=== PATIENT | female | born 1950 | race Caucasian/White ===

== ENCOUNTER 2017-08-18 10:53 | Emergency (ER) | payer MEDICARE ==
[~2017-08-18] VITALS: Ht 157.5 cm; Wt 88.5 kg
[2017-08-18] MEDS ORDERED: LEVOXYL112 MCG PO (11:07)
[2017-08-18] MEDS ORDERED: ASPIRIN81 MG PO (11:07)
[2017-08-18] MEDS ORDERED: HYDROCHLOROTH12.5 MG PO (11:14)
[2017-08-18] MEDS ORDERED: OMEPRAZOLE20 MG PO (11:15)
[2017-08-18] MEDS ORDERED: ALAVERT10 M1 PO (11:16)
--- NOTE | 2017-08-19 08:16 | EKG ---
[facility] [address] [facility] [place] [address] Signed Normal sinus rhythm Normal ECG No previous ECGs available Confirmed by NOEL ELENA MD ([id number]) on 08/19/2017 8:15:58 AM Electronically Signed By: NOEL ELENA MD 08/19/17 0816 PATIENT NAME: EMMA IRAHETA DELANEY Electrocardiogram DATE OF : 52 PHYSICIAN: NOEL ELENA MD REPORT #: [id number] REPORT IS CONFIDENTIAL AND NOT TO BE RELEASED WITHOUT AUTHORIZATION
== END 2017-08-18 13:16 | disposition short-term general hospital (02) ==
LOC: ED 10:53
DX: I20.0 Unstable angina (principal); Z88.2 Allergy status to sulfonamides; Z79.899 Other long term (current) drug therapy; Z79.82 Long term (current) use of aspirin
CPT/HCPCS: 71045; 80053; 84484; 85025; 93005; 93010; 96374; 99285; J1644

== ENCOUNTER 2021-08-25 19:06 | Inpatient (IN) | payer MEDICARE, OTHER ==
[~2021-08-25] VITALS: Ht 157.5 cm; Wt 93.4 kg
[~2021-08-25 19:06] MED LIST: ALAVERT10 M1 PO; ASPIRIN81 MG PO; HYDROCHLOROTH12.5 MG PO; LEVOXYL112 MCG PO; OMEPRAZOLE20 MG PO
--- NOTE | 2021-08-25 23:26 | NUR ---
PT ON 3LNC O2, NOT CHRONIC, SOB WITH EXERTION NOTED ON RETURN FROM BR EARLIER. COOP WITH ASSESSMENT. LUNGS EXP WHEEZING AND DIM AT BASES, MOIST COUGH NOTED, MEDICATED WITH TESSALON PERLES AND COUGH SYRUO, C/O H/A 5/10 MEDICATED WITH TYLENOL PO. TOLERATING DIET AND FLUIDS WELL, NO N/V. ATE SNACKS AND SANDWICH BOX CONTENTS. ALERT AND ORIENTED. SL RFA PATENT. ORIENTED TO ROOM AND PROCEDURES
--- NOTE | 2021-08-25 23:52 | EKG ---
[facility] [address] [facility] [place] [address] Signed Sinus rhythm with frequent premature ventricular complexes Biatrial enlargement Incomplete right bundle branch block Abnormal ECG When compared with ECG of 18-AUG-2017 10:55, premature ventricular complexes are now present Incomplete right bundle branch block is now present Confirmed by NOEL ELENA MD ([id number]) on 08/25/2021 11:52:33 PM Electronically Signed By: NOEL ELENA MD 08/25/212351 PATIENT NAME: EMMA IRAHETA DELANEY Electrocardiogram DATE OF : 52 PHYSICIAN: NOEL ELENA MD REPORT #: [id number] REPORT IS CONFIDENTIAL AND NOT TO BE RELEASED WITHOUT AUTHORIZATION
--- NOTE | 2021-08-26 00:22 | NUR ---
Pt on droplet isolation precautions. on 3L NC not chronic, up to br, voided back to bed, sob present. sats 84% on 3L P102 oand RR 26, O2 increased to 5L went up to 88% and after several CDB went up to 92%, O2 decreased to 3L, pulse 88, R20. back to bed, bed alarm on aware to call prior to getting up.
--- NOTE | 2021-08-26 02:20 | NUR ---
RESTING, EYE CLOSED, NO DISTRESS, ON 3LNC, ON DROPLET ISOLATION
--- NOTE | 2021-08-26 03:41 | NUR ---
O2 WAS DECREAED EARLIER TO 2LNC WHEN IN BED, SATS 95%. O2 INCREAED TO 4L WHEN UP TO BR, SATS 90% ON RETURN, P102, R22. MUCH IMPROVED, LUNGS DIM, EXP WHEEZING L SIDE, DRY TO MOIST OCCASSINAL COUGH PRESENT, DENEIS NEED OFR MORE COUGH SYRUP. TOLERATING LIQUIDS WELL, NO EMESIS, WARM BLANKET GIVEN ON REQUESTS. ROOM TEMP INCREAED TO 74 AT HER REQUETS. COOP.
--- NOTE | 2021-08-26 05:31 | NUR ---
PATIENT ASSISTED TO THE RESTROOM A SBA. PATIENT ABLE TO VOID. PATIENT IS BACK IN BED RESTING. VITALS TAKEN AND RECORDED. INTAKE AND OUTPUT RECORDED. PATIENT REMAINS ON 2L VIA NC. PATIENT DENIES ANY FURTHER NEEDS. TEMPERATURE TURNED DOWN IN ROOM PER REQUEST.
--- NOTE | 2021-08-26 05:46 | NUR ---
O2 was weaned from 3L to 2L, pt does desat when returning to bed from BR, O2 increaed to 4L when up to br, and back to 2L once whe gets in bed, O2 not chronic. Lungs much improved dim at bases and exp wheezing L lung now, has been working on IS, dry to moist productive cough at times, received tessalon perles and Robitussin syrup, effective, c/o h/a, received Tylenol, effective. SBA. tolerating liquids well, no emesis. cooperative, on droplet isolation. uses call light
--- NOTE | 2021-08-26 07:30 | NUR ---
REPORT RECEIVED. PT IN BED WITH EYES CLOSED. 2L NC IN PLACE. CALL LIGHT IN REACH.
--- NOTE | 2021-08-26 08:47 | NUR ---
ASSESSMENT COMPLETED. TITRATED TO 1.5L NC. SATURATIONS AT 93%. LUNGS DIM AND TIGHT THROUGHOUT. COUGH IS MOIST AND NON-PRODUCTIVE. RR ARE 20. PT AMBULATED TO BATHROOM INDEPENDENTLY. HR INCREASED TO 106. PT REPORTS SOME LIGHTHEADEDNESS AND SOB. O2 SATURATIONS AT 91 WHN BACK TO BED. PT VOIDED 50ML. BREAKFAST PLACED AT BEDSIDE. PT DENIES FURTHER NEEDS. CALL LIGHT IN REACH.
--- NOTE | 2021-08-26 10:20 | NUR ---
INTO ROOM TO SPEAK WITH PATIENT. PATIENT SON JAYLA AT BEDSIDE. PATIENT STATES SHE LIVES AT HOME WITH HER SON JAYLA AND ONE OTHER SON. JAYLA STATES THE PATIENT WILL HAVE AMPLE HELP AT HOME WHEN DISCHARGED. PATIENT DID NOT REQUIRE DME OR O2 PRIOR TO HER HOSPITAL STAY. PATIENT DOES HAVE STAIRS INTO THE HOME, BUT GENERALLY DOES NOT HAVE ISSUES WITH THEM. PATIENT AND SON BOTH DENY THE NEED FOR FINANCIAL ASSISTANCE AT THIS TIME. PATIENT AND FAMILY HAVE NO OTHER QUESTIONS OR CONCERNS AT THIS TIME. CASE MANAGEMENT WILL CONTINUE TO FOLLOW UP WITH PATIENT DURING HER VISIT.
[2021-08-26] MEDS ORDERED: LEVOTHYROXINE100 MCG PO (10:56)
[2021-08-26] MEDS ORDERED: ATORVASTATIN CA20 MG PO (10:57)
[2021-08-26] MEDS ORDERED: DAILY VITE1 EAC1 PO (10:58)
--- NOTE | 2021-08-26 11:04 | NUR ---
ROUNDED ON PT FOR PAIN ASSESSMENT. PT REPORTS IT IS IMPROVED TO 2/. PT ATE 15% OF BREAKFAST. VOIDED ANOTHER 200ML. SATURATIONS SAME PREVIOUS. DENIES NEEDS. CALL LIGHT IN REACH.
--- NOTE | 2021-08-26 11:27 | NUR ---
MED REC COMPLETE
--- NOTE | 2021-08-26 11:56 | NUR ---
CALL LIGHT ANSWERED. PT REPRORTING NAUSEA. ZOFRAN ADMINISTERED. PT REPORTS HAVING SOME SOB. RT CALLED FOR GREATHING TREATMENT. CALL LIGHT IN REACH
--- NOTE | 2021-08-26 16:00 | NUR ---
ROUNDED ON PT. PT REPORTING SOME SHOLER AND BACK PAIN. TYLENOL ADMISNTERED. PT WITH COUGH AND REQUESTING COUGH MEDICATIONS. (SEE MAR).
--- NOTE | 2021-08-26 18:46 | NUR ---
PT IN SHOWER, STBY TO SHOWER, INDEPENDENT IN SHOWER, LINEN CHANGED, GOWN CHANGED. PT BACK IN BED AFTER SHOWER.CALL LIGHT IN REACH.
--- NOTE | 2021-08-26 20:59 | NUR ---
UP TO BR, VOIDING QS, TOLERATING WELL, MUCH IMPROVED. O2 1LNC, LUNGS JEISON T BASES FINE CRACKLES, NO SOB W EXERTION NOTED THIS STIME, ALERT ORINETED, COOP. RECEIVED A NEB TX EARLIER. TOLERATING LIQUIDS WELL. SL PATENT. C/O SHOULDER PAIN. ICE TO AREA, C/O MOIST NON PRODUCTIVE COUGH, MEDICATED ROJAS TERRY. INSOMNIA, MEDICATED WITH MELATONIN, TEMP 99.1, WORKING WITH IS TEMP DOEN TO 99.7. USES CALL LIGHT. CONT ON DROPLET ISOLATION
--- NOTE | 2021-08-26 22:26 | NUR ---
IN ROOM TO GIVE PRN TYLEON PER REPORTED 6/10 LOWER BACK PAIN, PER REQUEST OF PRIMARY RN. NO FURTHER NEEDS, CALL LIGHT IN REACH.
--- NOTE | 2021-08-26 23:55 | NUR ---
ON DROPLET ISOLATION PRECAUTIONS, O2 1LNC, EYES CLOSED, NO DISTRESS NOTED, CALL LIGHT AND FLUIDS AT HANDS REACH.
--- NOTE | 2021-08-27 01:34 | NUR ---
CONT ON DROPLET ISOLATION, ON 1LNC, NO DISTRESS, EYES CLOSED, CALL LIGHT AND FLUIDS T HANDS REACH
--- NOTE | 2021-08-27 03:08 | NUR ---
Resting, eyes closed, has got up to br w/o assist, voiding QS, call light and fluids t hands reach. O2 in place
--- NOTE | 2021-08-27 04:50 | NUR ---
tried to wean off O2 1l was 95%, on room air desatted to 79-81%, recuperated after a few secoand. Back on O2 1L, sats 91-93%, moist productive cough standing on edge of bed, tolerating liquids well. medicated with tessalon perles , cough syrup per cough and with tylenol 650mg po per rib pain from cough, and back l shoulder pain,. ice to shoulder. uses call light, up to BSC voided, tolerated well. no sob
--- NOTE | 2021-08-27 05:27 | NUR ---
Pt on 1L O2 not chronic, tried to wean off O2 and she desated on room ait to 79-81%, Back on 1LNC. sats 91-95%. moist productive cough, no sob with exertion, lungs dim at bases and fine crackles, received nebs,. Medicated with tessalon perlesX1 and cough syrup x2 per cough, effective, with Tylenol 650mg po x2 per h/a, back and L shoulder pain, ice to area, effective, turns and repositions self in bed, independent. cont on droplet isolation precautions. pleasant, alert and oriented, voding QS, toleeratiang liquids well, no emesis
--- NOTE | 2021-08-27 07:15 | NUR ---
bedside report from charbel, pt resting with call light in reach.
--- NOTE | 2021-08-27 08:51 | NUR ---
room air trial with Dr. Aragon present 88% ra. returned to la 2l to bring sats to 91% pt up in for meal- denies needs.
--- NOTE | 2021-08-27 14:04 | NUR ---
Patient sitting up in chair at this time watching tv, no distress. Patient remains on 2L oxygen per nc, no respiratory distress noted. Patient denies pain at this time. No current needs, personal supplies and call light within reach.
--- NOTE | 2021-08-27 16:45 | NUR ---
Tessalon perles 100mg po and tylenol 650mg po admin for body aches and cough. Patient titrated to 0.5L oxygen per nc at this time, sp02 sustained at 95%+. Patient provided with fresh water at this time. Encouraged patient to CDB and move about in room, pt receptive to plan of care. Call light within reach.
--- NOTE | 2021-08-27 19:26 | NUR ---
Pt awake, getting neb tx, no c/o pain. on O2, on droplet isolation precautions
--- NOTE | 2021-08-27 19:57 | NUR ---
pt completed a neb tx and started feeling "very dizzy and weird", was sitting on side of bed. RT in room, pulse went up to 150's. and then dropped to 44bpm. no sob no CP staed. on 1LNC. Dr Cabrales notified by charge nurse. EKG obtained by RT staed "Bigeminy beats." Dr Cabrales notified and informed, no new orders. Distant bradychardic HR auscultated, lungs dim and faint crackles. denies OSB or CP during this second assessment. Pt in bed. O2 1LNC. sats mid 90's. moist non productive cough. Bedpan give, HR as per monitors dropped to 34bpm, and very irregular up to 50's 81, back to 43 and up to 70 and back to 39 and 42 at thist angel. sats 97%, alert and orineted, watching tv. denies SOB or lightheadness at this time. pulse ox in place. procedure explained. pt cooperative, family member in room.
--- NOTE | 2021-08-27 20:07 | NUR ---
after getting off bed and repositioning in bed HR as per monitor went up to 136, once settled and calmer HR came down to 75-90BPM. denies SOB or CP, tolerated well, bp 112/60 R20
--- NOTE | 2021-08-27 20:18 | NUR ---
Dr Cabrales notified of irregular HR , "OK to place her on tele"
--- NOTE | 2021-08-27 20:38 | NUR ---
on 0.5L NE sasts 95%, tele#[address], Irregular HR occ PBC's, denies SOB or CP. visiting with family
--- NOTE | 2021-08-27 21:48 | NUR ---
1931 IN TO DO BREATHING TREATMENT PER PATIENT REQUEST. OBSERVED HR IN TH 40'S AND AFTER TREATMENT PATIENT REPORTED DIZZINESS. I CALL RN AND STARTED BP MACHINE. RN CONTACTED MD WHO ORDERED AN EKG AND IT WAS DONE AT 1937.
--- NOTE | 2021-08-27 22:09 | NUR ---
TELE#[address] AT 2046 HAD A NON SUSTAINED RUN OF VENTRICULA TRIGEMINE, CONTINEUS ON IRREGULAR HEART RATE AND OCC MULTIFORM PVC'S, STILL DENIES CP OR SOB. ON 0.5L O2. UP TO BSC, VOIDED, TOLERATD WELL
--- NOTE | 2021-08-27 22:12 | NUR ---
ASSISTED PT. TO BSC. MONITORED PT. PULSE. NURSE NOTIFIED OF FINDINGS. OUTPUT CHARTED ACCORDINGLY. ROOM TIDIED. CALL LIGHT LEFT WITHIN REACH. WARM BLANKET PROVIDED. NO OTHER IMMEDIATE NEEDS AT THIS TIME.
--- NOTE | 2021-08-27 23:20 | NUR ---
on 0.5LNC, tele#[address] SR, no c/o CP or SOB, up to BSC, voided yellow urine, back to bed. sats dropped to 87-89% when up, then back to 91%, pulse stayed the same at 87-95, no sob with exertion, no CP or SOB. back tobed. started 2GR mag sulfate IV as per new orders, received cough syrup per cough and melatonin per c/o insomnia. alert and orineted, family rooming in.
--- NOTE | 2021-08-28 01:38 | NUR ---
Restin, eyes closed, on 0.5L NC O2. turns and repositions self in bed. Tele#[address] SR p84. call light and fluids at bedside. cont on droplet isolation precautions
--- NOTE | 2021-08-28 04:01 | NUR ---
AWAKE, SITTING UP IN BED, O2 0.5L NC, LUNGS DIM T/O GOT A NEB TX EARLIER. NO C/O PAIN, WAS MEDICATED WITH COUGH SYRUP PER C/O SOUCH. TOLERATING LIQUIDS WELL. TELE#[address], NO FURTHER C/O CP, LIGHHEADNESS, TELE READING SR
--- NOTE | 2021-08-28 06:12 | NUR ---
pt continues on droplet precautions. On 0.5L NC, tolerating well, gets nebs, lungs diminish t/o. moist non productive cough, has been receiving cough syrup per cough. was independent in room until at beginign of shift, felt very lightheaded, dizzy and got very pale. RT was in room. sats were WNL but her pulse increased to 150's bpm and then down to low 33 bpm, denies CP or SOB. Dr Cabrales notified, EKG obtained with readings ot bigeminy and SR with frequent PVC's. tele#[address], readings of ventricular trigeminy and multiform PVC's currently on SR with pulse stable at 85. pulse increased when up to BSC or repositioning in bed but much more stable at this time. SL patent. received one dose of 2GR mag sulfate IV as per orders and labs drawn. uses call light and tolerating liquids well. daugther in room.
--- NOTE | 2021-08-28 06:39 | NUR ---
on 0.5Lnc, sats 90%, up to bsc, voided large amount of urine, tolerated well, no sob, back to bed. tolerating well, tele#[address], irregular HR
--- NOTE | 2021-08-28 07:49 | NUR ---
RECAmelia. BEDSIDE REPORT FROM NIGHT RN, ASSUMED ALL CARE OF PT.
--- NOTE | 2021-08-28 08:01 | NUR ---
PT UP TO BSC AND BACK TO BED. PT ATE 40% OF BREAKFAST. NO OTHER NEEDS AT THIS TIME. CALL LIGHT IN REACH.
--- NOTE | 2021-08-28 09:16 | NUR ---
PT. WANTED TO AMBULATE TO BR FOR URINATION. HER SATS PRIOR TO AMBULATING WERE 92% ON 1 L 02 PER NC. IN THE BR SATS WERE 91% ON 1L AND THEN BACK TO BED AND SITTING ON EOB, RESP. 18 AND 02 SATS @ 88-89% ON 1L NC. DENIES DIZZINESS OR LIGHTHEADEDNESS OR CHEST DISCOMFORT, PALPITATIONS. CRACKLES POST ALL FOUR AREAS, PRODUCTIVE COUGH, CLEAR/WHITE SMALL SPUTUM.
[2021-08-28] MEDS ORDERED: OSELTAMIVIR PHO75 MG PO (10:55)
[2021-08-28] MEDS ORDERED: NICOTINE LOZENGE4 MG BUCCAL (10:55)
[2021-08-28] MEDS ORDERED: BENZONATATE100 MG PO (10:56)
[2021-08-28] MEDS ORDERED: PROVENTIL HFA6.7 GM INH (10:57)
--- NOTE | 2021-08-28 12:30 | NUR ---
PREPARE PT. FOR DISCHARGE HOME WITH HOME O2 SET UP BY TRIAGE ASSISTANT.
--- NOTE | 2021-08-28 13:30 | NUR ---
VITAL SIGNS STABLE AND MD AWARE OF ECTOPY ON MONITOR. PT. TO F/U WITH PCP UPON DISCHARGE HOME. SON IN ROOM, REVIEWED DC INSTX. VERBALIZED UNDERSTANDING AND HE WAS THE CAREGIVER OF HIS FATHER WHO WAS ALSO ON OXYGEN SO HE VERBALIZED THE WEANING PROCESS AND IS AWARE OF THE CARE HE WILL PROVIDE FOR HIS MOM. PT. VERBALIZED UNDERSTANDING OF PROCESS AND STILL WISHES TO CONTINUE QUITTING SMOKING WHEN HOME. DC HOME WITH 02 TANK AND OXYGEN IS SET UP WITH [facility] THEIR PROVIDER. F/U WITH PCP IN 7-10 DAYS. RETURN IF WORSENING
--- NOTE | 2021-08-29 12:32 | EKG ---
[facility] [address] [facility] [place] [address] Signed Sinus rhythm with frequent premature ventricular complexes Otherwise normal ECG When compared with ECG of 25-AUG-2021 19:19, Incomplete right bundle branch block is no longer present Confirmed by ILAN GERARD MD ([id number]) on 08/29/2021 12:32:47 PM Electronically Signed By: ILAN GERARD MD 08/29/21 1232 PATIENT NAME: EMMA IRAHETA DELANEY Electrocardiogram DATE OF : 52 PHYSICIAN: ILAN GERARD MD REPORT #: [id number] REPORT IS CONFIDENTIAL AND NOT TO BE RELEASED WITHOUT AUTHORIZATION
== END 2021-08-28 13:40 | disposition home or self-care (01) | DRG 193 ==
LOC: ED 19:06 → MS 22:21
PROVIDERS: ADMIT Internal Medicine; ATTEND Internal Medicine
DX: J10.01 Influenza due to other identified influenza virus with the same other identified influenza virus pneumonia (principal); J96.01 Acute respiratory failure with hypoxia; J44.0 Chronic obstructive pulmonary disease with (acute) lower respiratory infection; Z20.822 Contact with and (suspected) exposure to COVID-19; I49.3 Ventricular premature depolarization; E89.0 Postprocedural hypothyroidism; E78.5 Hyperlipidemia, unspecified; Z88.2 Allergy status to sulfonamides; Z79.899 Other long term (current) drug therapy; Z87.891 Personal history of nicotine dependence; Z90.710 Acquired absence of both cervix and uterus; Z90.49 Acquired absence of other specified parts of digestive tract; Z79.82 Long term (current) use of aspirin
CPT/HCPCS: 36415; 71045; 80048; 80053; 82565; 83735; 83880; 84132; 84484; 84520; 85025; 85379; 87502; 93005; 93010; 94640; 94760; 94761; 96374; 99285-25; A9270; J2405; J3475; U0003

== ENCOUNTER 2022-11-28 10:49 | Emergency (ER) | payer MEDICARE, OTHER ==
[~2022-11-28] VITALS: Ht 157.5 cm; Wt 98.9 kg
[~2022-11-28 10:49] MED LIST changes: +ATORVASTATIN CA20 MG PO; +BENZONATATE100 MG PO; +DAILY VITE1 EAC1 PO; +LEVOTHYROXINE100 MCG PO; +NICOTINE LOZENGE4 MG BUCCAL; +OSELTAMIVIR PHO75 MG PO; +PROVENTIL HFA6.7 GM INH
[2022-11-28] MEDS ORDERED: HYDROCODON-ACE1 EA10 PO (12:44)
[2022-11-28 12:52] VITALS: BP 139/74
== END 2022-11-28 12:52 | disposition home or self-care (01) ==
LOC: ED 10:49
DX: M54.9 Dorsalgia, unspecified (principal); J44.9 Chronic obstructive pulmonary disease, unspecified; Z87.891 Personal history of nicotine dependence; Z88.2 Allergy status to sulfonamides; Z79.899 Other long term (current) drug therapy
CPT/HCPCS: 71046; 99283-25; A9270

== ENCOUNTER 2023-01-20 10:01 | Observation (INO) | payer MEDICARE, OTHER ==
[~2023-01-20] VITALS: Ht 157.5 cm; Wt 98.1 kg
[~2023-01-20 10:01] MED LIST changes: +HYDROCODON-ACE1 EA10 PO
[2023-01-20 10:24] LABS: BASOPHILS 0.2 % (0-2); EOSINOPHILS 0.6 % (0-6); HEMATOCRIT 41.9 % (35.0-50.0); HEMOGLOBIN 14.2 g/dL (12.0-18.0); LYMPHOCYTES 6.7 % (24-44); MCH 31.9 (27-36); MCHC 33.9 g/dl (30-36); MCV 94.1 fl (81-99); MONOCYTES 5.9 % (0-12); NEUTROPHILS 86.6 % (39-80); PLATELET COUNT 218 K/uL (140-440); RBC 4.46 M/ul (4.3-5.7); RDW 14.6 (10.5-15.0)
[2023-01-20 10:39] LABS: ALBUMIN 3.8 g/dL (3.4-5.0); ALBUMIN/GLOBULIN RATIO 1.06 (1.1-2.4); ANION GAP 13.5 (7-21); BILIRUBIN, TOTAL 0.5 ng/dL (0.2-1.0); BUN/CREATININE RATIO 13.04 (6.0-28.6); CALCIUM 8.5 mg/dL (8.5-10.1); CREATININE, SERUM 0.69 mg/dL (0.55-1.02); POTASSIUM 3.5 mmol/L (3.5-5.1); PROTEIN, TOTAL 7.4 g/dL (6.4-8.2)
[2023-01-20 11:06] LABS: INFLUENZA B NAA NEGATIVE (NEGATIVE); RESPIRATORY SYNCYTIAL VIR NAA NEGATIVE (NEGATIVE)
[2023-01-20] MEDS ORDERED: LEVOTHYROXINE88 MCG PO (12:49)
[2023-01-20 13:44] VITALS: BP 159/70
[2023-01-20 17:50] VITALS: BP 168/74
[2023-01-20 21:18] VITALS: BP 128/62
[2023-01-21 01:22] VITALS: BP 110/48
[2023-01-21 05:29] LABS: BASOPHILS 0.1 % (0-2); EOSINOPHILS 0.3 % (0-6); HEMATOCRIT 40.7 % (35.0-50.0); HEMOGLOBIN 13.7 g/dL (12.0-18.0); LYMPHOCYTES 4.2 % (24-44); MCH 31.7 (27-36); MCHC 33.6 g/dl (30-36); MCV 94.3 fl (81-99); MONOCYTES 4.6 % (0-12); NEUTROPHILS 90.8 % (39-80); PLATELET COUNT 236 K/uL (140-440); RBC 4.32 M/ul (4.3-5.7); RDW 14.4 (10.5-15.0)
[2023-01-21 05:34] LABS: ANION GAP 13.1 (7-21); BUN/CREATININE RATIO 20.68 (6.0-28.6); CALCIUM 8.7 mg/dL (8.5-10.1); CREATININE, SERUM 0.58 mg/dL (0.55-1.02); POTASSIUM 4.1 mmol/L (3.5-5.1)
[2023-01-21 05:47] VITALS: BP 142/71
--- NOTE | 2023-01-21 06:11 | EKG ---
[facility] [address] [facility] [place] [address] Signed Normal sinus rhythm Incomplete right bundle branch block Borderline ECG When compared with ECG of 27-AUG-2021 18:38, premature ventricular complexes are no longer present Confirmed by LATOYA ROSE MD ([id number]) on 01/21/2023 6:11:40 AM Electronically Signed By: LATOYA ROSE 01/21/23610 PATIENT NAME: EMMA IRAHETA DELANEY Electrocardiogram DATE OF : 52 PHYSICIAN: LATOYA ROSE REPORT #: [id number] REPORT IS CONFIDENTIAL AND NOT TO BE RELEASED WITHOUT AUTHORIZATION
[2023-01-21 09:26] VITALS: BP 130/70
[2023-01-21] MEDS ORDERED: AMOX TR-K CLV1 EAC1 PO (10:17)
[2023-01-21] MEDS ORDERED: AZITHROMYCIN500 MG PO (10:18)
[2023-01-21] MEDS ORDERED: MUCINEX600 MG PO (10:18)
[2023-01-21] MEDS ORDERED: ALBUTEROL2.5 MG/0.5 INH (10:19)
[2023-01-21] MEDS ORDERED: PREDNISONE20 MG PO (11:11)
== END 2023-01-21 12:53 | disposition home or self-care (01) ==
LOC: ED 10:01 → MS 10:03
PROVIDERS: Family Medicine; ADMIT Family Medicine; ATTEND Family Medicine
DX: J44.1 Chronic obstructive pulmonary disease with (acute) exacerbation (principal); J96.01 Acute respiratory failure with hypoxia; E03.9 Hypothyroidism, unspecified; J44.0 Chronic obstructive pulmonary disease with (acute) lower respiratory infection; J18.9 Pneumonia, unspecified organism; Z20.822 Contact with and (suspected) exposure to COVID-19; E78.00 Pure hypercholesterolemia, unspecified; Z88.2 Allergy status to sulfonamides; Z72.0 Tobacco use
CPT/HCPCS: 36415; 71045; 80048; 80053; 83735; 84484; 85025; 87502; 93005; 93010; 94640; 94667; 94760; A9270; C9803; J0696; J1650; J1885; J2930; J7512; U0002

== ENCOUNTER 2024-05-19 01:00 | Observation (INO) | payer MEDICARE, OTHER ==
[2024-05-19] VITALS (7 sets, daily range): BP systolic 112–164; BP diastolic 57–80
[~2024-05-19] VITALS: Ht 157.5 cm; Wt 84.6 kg
[~2024-05-19 01:00] MED LIST changes: +ALBUTEROL2.5 MG/0.5 INH; +AMOX TR-K CLV1 EAC1 PO; +AZITHROMYCIN500 MG PO; +LEVOTHYROXINE88 MCG PO; +MUCINEX600 MG PO; +PREDNISONE20 MG PO
[2024-05-19] MEDS ORDERED: NP THYROID15 MG PO (01:18)
[2024-05-19] MEDS ORDERED: IBLOOD GLUCOSE TEST STRIP 1 EA TEST XX ONE (01:45)
[2024-05-19 01:46] LABS: BASOPHILS 0.4 % (0-2); EOSINOPHILS 1.3 % (0-6); HEMOGLOBIN 15.7 g/dL (12.0-18.0); LYMPHOCYTES 23.1 % (24-44); MCH 33.1 (27-36); MCHC 34.9 g/dl (30-36); MCV 94.7 fl (81-99); MONOCYTES 6.5 % (0-12); NEUTROPHILS 68.7 % (39-80); PLATELET COUNT 252 K/uL (140-440); RBC 4.75 M/ul (4.3-5.7); RDW 13.7 (10.5-15.0)
[2024-05-19 01:59] LABS: ALBUMIN 4.1 g/dL (3.4-5.0); ALBUMIN/GLOBULIN RATIO 1.14 (1.1-2.4); ANION GAP 9.8 (7-21); BILIRUBIN, TOTAL 0.3 mg/dL (0.2-1.0); BUN/CREATININE RATIO 27.27 (6.0-28.6); CALCIUM 8.9 mg/dL (8.5-10.1); CREATININE, SERUM 0.44 mg/dL (0.55-1.02); POTASSIUM 3.8 mmol/L (3.5-5.1); PROTEIN, TOTAL 7.7 g/dL (6.4-8.2)
[2024-05-19 03:18] LABS: INR 0.93 (0.80-1.30); PROTIME 12.4 Sec (11.2-14.2)
[2024-05-19 03:20] LABS: PARTIAL THROMBOPLASTIN TIME 29.4 Sec (22.9-41.3)
[2024-05-19] MEDS ORDERED: ATORVASTATIN 40 MG TAB PO ONE (03:45)
[2024-05-19] MEDS ORDERED: ASPIRIN 81 MG CHEW PO ONE (03:45)
[2024-05-19 03:51] LABS: CHOLESTEROL/HDL RATIO 2.8
[2024-05-19 03:56] LABS: AMPHETAMINES, URINE NEGATIVE (NEGATIVE); BARBITURATES, URINE NEGATIVE (NEGATIVE); BENZODIAZEPINE, URINE NEGATIVE (NEGATIVE); BUPRENORPHINE, URINE NEGATIVE (NEGATIVE); CANNABINOID, URINE NEGATIVE (NEGATIVE); COCAINE, URINE NEGATIVE (NEGATIVE); ECSTASY, URINE NEGATIVE (NEGATIVE); FENTANYL, URINE NEGATIVE (NEGATIVE); METHADONE, URINE NEGATIVE (NEGATIVE); OPIATES, URINE NEGATIVE (NEGATIVE); OXYCODONE, URINE NEGATIVE (NEGATIVE); PHENCYCLIDINE, URINE NEGATIVE (NEGATIVE)
[2024-05-19] MEDS ORDERED: ACETAMINOPHEN 325 MG TAB PO PRN ×2 (04:15→10:00)
[2024-05-19] MEDS ORDERED: ondansetron HCL 4 MG/2 ML VIAL IV PRN ×2 (04:15→10:00)
--- NOTE | 2024-05-19 05:10 | NUR ---
0445 - admitted to room 108 from ED. alert and oriented, ambulated to brp, voided qs. back to bed tolerated well. Cooperative with assessments. On room air, lungs with exp wheezing bilat, no sob noted when returning from BRP. tele#[address] denies CP. abd SUZIE, LBM 05/18. during assessment noted R leg deficit drifting. Trace edema from below knee to toes . good pulses, alert and oriented to all. Family at bedside. [facility] protocol started
--- NOTE | 2024-05-19 07:24 | NUR ---
MORNING REPORT RECIEVED FROM LUCIO FALLON. PT LAYING IN BED WITH TWO SONS IN ROOM. PT ALERT AND ORIENTED. PT HAS NO CONPLAINTS OF PAIN AT THIS TIME. PT STATES SHE IS STILL TIRED AND IS GOING TO TRY AND SLEEP. PT HAS NO CONCERNS AT THIS TIME CALL LIGHT IN REACH.
--- NOTE | 2024-05-19 10:12 | EKG ---
[facility] [address] [facility] [place] [address] Signed Normal sinus rhythm Normal ECG When compared with ECG of 20-JAN-2023 10:19, No significant change was found Confirmed by Veronica Delgado MD () on 05/19/2024 10:12:00 AM Electronically Signed By: VERONICA DELGADO MD 05/19/24 1012 PATIENT NAME: EMMA IRAHETA DELANEY Electrocardiogram DATE OF : 52 PHYSICIAN: VERONICA DELGADO MD REPORT #: [id number] REPORT IS CONFIDENTIAL AND NOT TO BE RELEASED WITHOUT AUTHORIZATION
--- NOTE | 2024-05-19 11:40 | NUR ---
PT SITTING ON EDGE OF BED, PT NOTIFIED THAT SHE WILL RECIEVE AN MRI TODAY. PT HAS NO CURRENT CONCERNS AT THIS TIME. PT SON IN ROOM.
[2024-05-19] MEDS ORDERED: PHARMACY RENAL DOSE ADJUSTMENT 1 DOSE MISC PO SCH (12:00)
--- NOTE | 2024-05-19 12:15 | NUR ---
MRI CALLED AND IS COMING DOWN TO GET THE PT. PT WAS MADE AWARE AND WAS AGREEABLE. PT HAS NO OTHER CONCERNS AT THIS TIME CALL LIGHT IN REACH.
--- NOTE | 2024-05-19 13:41 | NUR ---
PT SITTING UP IN BED, PT EATING LUNCH AT THIS TIME AND HAS NO COMPLAINTS AT THIS TIME PT SON IS IN ROOM, AND CALL LIGHT IN REACH.
[2024-05-19] MEDS ORDERED: ATORVASTATIN CA20 MG PO (14:54)
[2024-05-19] MEDS ORDERED: BAYER CHEWABLE81 MG PO (14:55)
[2024-05-19] MEDS ORDERED: VENTOLIN HFA18 GM INH (14:59)
[2024-05-19] MEDS ORDERED: ALBUTEROL2.5 MG/3 M INH (15:01)
== END 2024-05-19 04:24 | disposition home or self-care (01) ==
LOC: ED 01:00 → MS 01:02
PROVIDERS: Internal Medicine; ADMIT Family Medicine; ATTEND Family Medicine
DX: G45.9 Transient cerebral ischemic attack, unspecified (principal); F10.129 Alcohol abuse with intoxication, unspecified; E89.0 Postprocedural hypothyroidism; I10 Essential (primary) hypertension; J44.9 Chronic obstructive pulmonary disease, unspecified; E78.00 Pure hypercholesterolemia, unspecified; F17.210 Nicotine dependence, cigarettes, uncomplicated; Z66 Do not resuscitate; Z79.890 Hormone replacement therapy; Z79.899 Other long term (current) drug therapy; Z88.2 Allergy status to sulfonamides
CPT/HCPCS: 36415; 70450; 70496; 70498; 70553; 71045; 80053; 80061; 80307; 82140; 83036; 84484; 85025; 85610; 85730; 93005; 93010; 93306; 97161; 99285-25; A9270; A9579; G0378; G0480; Q3014

== ENCOUNTER 2024-05-26 11:53 | Emergency (ER) | payer MEDICARE, OTHER ==
[~2024-05-26] VITALS: Ht 157.5 cm; Wt 86.7 kg
[~2024-05-26 11:53] MED LIST changes: +ALBUTEROL2.5 MG/3 M INH; +BAYER CHEWABLE81 MG PO; +NP THYROID15 MG PO; +VENTOLIN HFA18 GM INH
--- OUTSIDE RECORDS SUMMARY | 2024-05-26 11:59 | XMS ---
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 [facility] has no Care Guidelines for this patient. Anamika VISIT COUNT ([address] [facility] [place] TOTAL 2 NOTE: Visits indicate total known visits. [place] [place] (12 MO.) 05/26/2024 11:53 [facility] [place] TYPE: Emergency COMPLAINT: - SKIN PROBLEM 05/19/2024 01:01 [facility] TYPE: Emergency COMPLAINT: - ALTERED LOC/ALCOHOL INPATIENT VISIT TRACKING (12 MO.) 05/19/2024 01:02 [facility] TYPE: Observation COMPLAINT: - TIA DIAGNOSES: - Alcohol abuse with intoxication, unspecified - Allergy status to sulfonamides - Altered mental status, unspecified - Chronic obstructive pulmonary disease, unspecified - Do not resuscitate - Essential (primary) hypertension - Hormone replacement therapy - Nicotine dependence, cigarettes, uncomplicated - Other detention (current) drug therapy - Postprocedural hypothyroidism - Pure hypercholesterolemia, unspecified - Transient cerebral ischemic attack, unspecified [email or web address]
[2024-05-26] MEDS ORDERED: PLAVIX75 MG PO (12:29)
[2024-05-26 12:39] VITALS: BP 158/81
[2024-05-26] MEDS ORDERED: CLOPIDOGREL BISULFATE 75 MG TAB PO ONE (12:45)
== END 2024-05-26 12:39 | disposition home or self-care (01) ==
LOC: ED 11:53
DX: L27.0 Generalized skin eruption due to drugs and medicaments taken internally (principal); T39.015A Adverse effect of aspirin, initial encounter; J44.9 Chronic obstructive pulmonary disease, unspecified; E03.9 Hypothyroidism, unspecified; E78.00 Pure hypercholesterolemia, unspecified; Z79.899 Other long term (current) drug therapy; Z79.82 Long term (current) use of aspirin; Z88.2 Allergy status to sulfonamides; Z87.891 Personal history of nicotine dependence
CPT/HCPCS: 99282

== ENCOUNTER 2024-08-03 11:08 | Emergency (ER) | payer MEDICARE, OTHER ==
[~2024-08-03] VITALS: Ht 157.5 cm; Wt 85.8 kg
[~2024-08-03 11:08] MED LIST changes: +PLAVIX75 MG PO
[2024-08-03 12:11] LABS: BILIRUBIN, URINE NEGATIVE (negative); BLOOD/HGB, URINE NEGATIVE (Negative); KETONE, URINE NEGATIVE (Negative); LEUK ESTERASE, URINE NEGATIVE (negative); NITRITE, URINE NEGATIVE (negative)
[2024-08-03 12:19] LABS: BASOPHILS 0.7 % (0.1-1.2); EOSINOPHILS 0.7 % (0.7-5.8); HEMATOCRIT 43.3 % (34.1-44.9); HEMOGLOBIN 14.3 g/dL (11.2-15.7); LYMPHOCYTES 20.8 % (19.3-51.7); MCH 31.7 PG (25.6-32.2); MONOCYTES 7.7 % (4.7-12.5); PLATELET COUNT 245 K/uL (182-369); RBC 4.51 M/uL (3.93-5.22)
[2024-08-03] MEDS ORDERED: LOSARTAN POTASS50 MG PO (12:20)
[2024-08-03 12:36] LABS: ALBUMIN 3.7 g/dL (3.4-5.0); ALBUMIN/GLOBULIN RATIO 1.19 (1.1-2.4); BILIRUBIN, TOTAL 0.5 mg/dL (0.2-1.0); BUN/CREATININE RATIO 34.09 (6.0-28.6); CALCIUM 8.6 mg/dL (8.5-10.1); CREATININE, SERUM 0.44 mg/dL (0.55-1.02); PROTEIN, TOTAL 6.8 g/dL (6.4-8.2)
[2024-08-03 14:04] VITALS: BP 128/84
== END 2024-08-03 14:04 | disposition home or self-care (01) ==
LOC: ED 11:08
PROVIDERS: Emergency Medicine
DX: R10.31 Right lower quadrant pain (principal); J44.9 Chronic obstructive pulmonary disease, unspecified; Z87.891 Personal history of nicotine dependence; Z88.8 Allergy status to other drugs, medicaments and biological substances; Z88.2 Allergy status to sulfonamides; Z79.899 Other long term (current) drug therapy
CPT/HCPCS: 36415; 74177; 80053; 81003; 83690; 85025; 99284-25; Q9967

== ENCOUNTER 2024-11-06 10:25 | Day surgery (SDC) | payer MEDICARE, OTHER ==
[~2024-11-06] VITALS: Ht 157.5 cm; Wt 85.7 kg
[~2024-11-06 10:25] MED LIST changes: +IBLOOD GLUCOSE TEST STRIP 1 EA TEST VI PRN; +LACTATED RINGER'S 1,000 ML IV SCH; +LC-655118 MG PO; +LIDOCAINE HCL 1% 5 ML SDV INJ ONE; +LOSARTAN POTASS50 MG PO
[2024-11-06 10:43] VITALS: BP 128/76
[2024-11-06] MEDS ORDERED: LIDOCAINE HCL 2% 5 ML SDV ONE (12:44)
[2024-11-06] MEDS ORDERED: GLYCOPYRROLATE 1 MG/5 ML MDV ONE ×3 (12:44→12:48)
[2024-11-06] MEDS ORDERED: GLYCOPYRROLATE 1 MG/5 ML MDV IV ONE (12:45)
--- NOTE | 2024-11-06 13:07 | NUR ---
11/06/24 1307 Lizzy Jacobo 1301: PT ARRIVES TO PACU NON AROUSAL. REPORT RECEIVED FROM ELEVATOR INSTALLER APPRENTICE AND MANAGER FIELD.
[2024-11-06 13:31] VITALS: BP 131/85
--- NOTE | 2024-11-08 14:30 | PATH ---
[facility] [address] [place], [place] [address] Signed SPECIMEN(S): A COLON POLYP, 30 CM SPECIMEN SOURCE: A. COLON POLYP, 30 CM CLINICAL HISTORY: Abdominal pain, family history of colon cancer, diverticulosis, colon polyps FINAL PATHOLOGIC DIAGNOSIS: Colon polyp at 30 cm - Tubular adenoma. AMB MICROSCOPIC EXAMINATION: Histologic sections of all submitted blocks are examined by light microscopy. These findings, together with the gross examination, support the pathologic diagnosis. GROSS DESCRIPTION: The specimen, labeled and designated "Harpreet colon polyp, 30 cm," is received in formalin and consists of one gilbert soft tissue fragment, 0.3 cm. Entirely submitted in (A1). VB (under the direct supervision of a pathologist) The Gross Description was prepared using a voice recognition system. The report was reviewed for accuracy; however, sound-alike word errors, addition and/or deletions may occur. If there is any question about this report, please contact Client Services. ADDITIONAL NOTES: Immunohistochemical and/or in situ hybridization studies if performed in this case included appropriate positive controls that reacted as expected. This test was developed and its performance characteristics determined by [facility]. It has not been cleared or approved by the U.S. Food and Drug Administration. The FDA has determined that such clearance or approval is not necessary. This test is used for clinical purposes. It should not be regarded as investigational or for research. [facility] is certified under the Clinical Laboratory Improvement Amendments of 1988 (CLIA) as qualified to perform high complexity clinical laboratory testing. PATIENT NAME: EMMA IRAHETA PATHOLOGY DATE OF : 52 REPORT #: [id number] PHYSICIAN: MARLEN CAT PCP: DARLENE DURAN MD REPORT IS CONFIDENTIAL AND NOT TO BE RELEASED WITHOUT AUTHORIZATION [facility] [address] [facility] [place] [address] Signed PERFORMING LABORATORY: Technical component was performed by [facility], [address] [place] [address] (CLIA# [id number]). Professional interpretation was performed by [facility] [address] [id number] Diagnostician: Obdulia Fisher MD Pathologist Electronically Signed 11/08/2024 Copies: ~ PATIENT NAME: EMMA IRAHETA PATHOLOGY DATE OF : 52 REPORT #: [id number] PHYSICIAN: MARLEN CAT PCP: DARLENE DURAN MD REPORT IS CONFIDENTIAL AND NOT TO BE RELEASED WITHOUT AUTHORIZATION
== END 2024-11-06 13:40 | disposition home or self-care (01) ==
LOC: DS 10:25
PROVIDERS: ATTEND Surgery
PROC: 0DBN8ZZ Excision of Sigmoid Colon, Via Natural or Artificial Opening Endoscopic (ICD-10-PCS; principal; 2024-11-06 11:20)
DX: Z12.11 Encounter for screening for malignant neoplasm of colon (principal); D12.5 Benign neoplasm of sigmoid colon; K57.30 Diverticulosis of large intestine without perforation or abscess without bleeding; K64.8 Other hemorrhoids; I10 Essential (primary) hypertension; E89.0 Postprocedural hypothyroidism; Z87.891 Personal history of nicotine dependence; Z79.890 Hormone replacement therapy; Z79.899 Other long term (current) drug therapy; Z88.2 Allergy status to sulfonamides; Z90.49 Acquired absence of other specified parts of digestive tract; Z80.0 Family history of malignant neoplasm of digestive organs
CPT/HCPCS: 00811; J2003; J2704; J7121